=== PATIENT | female | born 1985 | race Caucasian/White ===

== ENCOUNTER 2023-11-25 06:33 | Observation (INO) ==
[~2023-11-25 06:33] MED LIST: Clindamycin 900 MG/50 **NS BAG 900 MG/50 ML BAG IV ONE
[2023-11-25] MEDS ORDERED: Naloxone 0.4 mg VIAL 0.4 mg/ml 1 ml VIAL IV PUSH PRN ×2 (07:01→08:19)
[2023-11-25] MEDS ORDERED: oxyCODONE SR 10 mg TAB ONE (07:24)
[2023-11-25] MEDS ORDERED: Scopolamine 1 mg/72hr PATCH ONE (07:25)
[2023-11-25] MEDS ORDERED: Ondansetron 4 mg VIAL 2 MG/ML 2 ml VIAL ONE (07:25)
[2023-11-25] MEDS: Scopolamine 1 mg/72hr PATCH TRANSDERM ONE (07:30)
[2023-11-25] MEDS: Ondansetron 4 mg VIAL 2 MG/ML 2 ml VIAL IV ONE (07:30)
[2023-11-25] MEDS: oxyCODONE SR 10 mg TAB PO ONE (07:30)
[2023-11-25 07:32] LABS: ABS Basophils 0.1 10^3/uL (0.0-0.1); ABS Eosinophils 0.1 10^3/uL (0.0-0.5); ABS Lymphocytes 2.3 10^3/uL (1.0-4.8); ABS Monocytes 0.5 10^3/uL (0.0-0.9); ABS Neutrophils 3.4 10^3/uL (1.5-7.6); ABS Nucleated RBC 0.01 10^3/ul; Eosinophil % 1.3 %; Hematocrit 43.5 % (35-45); Hemoglobin 15.3 g/dL (11.5-14.3); Lymphocyte % 36.1 %; Mean Corpuscular Hemoglobin 29.7 pg (27-33); Mean Corpuscular Volume 84.6 fL (80-97); Mean Platelet Volume 6.8 fL (7.5-11.2); Nucleated Red Blood Cells % 0.1 %/100WBC (0.0-0.8); Platelet Count 349 10^3/uL (150-450); Red Blood Count 5.14 10^6/uL (3.63-4.92); White Blood Count 6.4 10^3/uL (3.8-11.8)
[2023-11-25 08:15] LABS: Anion Gap 13 mmol/L (2-16); Blood Urea Nitrogen 16 mg/dL (6-24); CO2 Carbon Dioxide 22 mmol/L (22-32); Calcium 9.5 mg/dL (8.6-10.3); Chloride 107 mmol/L (101-111); Creatinine, Serum 0.83 mg/dL (0.51-0.95); Glucose 93 mg/dL (70-100); Potassium 4.1 mmol/L (3.5-5.0); Sodium 142 mmol/L (135-145); eGFR CKD-EPI 91.9 (>60)
[2023-11-25] MEDS ORDERED: Flumazenil 0.5 mg/5 ml 0.1 MG/ML 5 ml VIAL IV PRN (08:19)
[2023-11-25] MEDS ORDERED: Midazolam 5 mg/5 ml VIAL 1 mg/ml 5 ml VIAL (5 mg) ONE (08:19)
[2023-11-25] MEDS ORDERED: Lidocaine 1% VIAL 10 MG/ML 30 ML VIAL ONE (08:19)
[2023-11-25] MEDS ORDERED: fentaNYL 100 mcg/2 ml 50 MCG/ML VIAL ONE ×2 (08:19→09:36)
[2023-11-25] MEDS ORDERED: Heparin 2 UNITS/ML IVPREMIX 3,000 UNIT/1,500 ML BAG IV ONE (08:20)
[2023-11-25] MEDS ORDERED: nitroGLYCERIN DRIP 25,000 MCG/250 ML BTL ONE (08:20)
[2023-11-25] MEDS ORDERED: Iohexol 350 (CONTRAST) 100 ML PAK IV ONE ×2 (08:20→08:53)
[2023-11-25 08:22] LABS: HCG Pregnancy < 0.60 mIU/mL
[2023-11-25] MEDS ORDERED: HYDROmorphone 0.5 MG/0.5 ML SYRINGE ONE ×2 (09:49→10:11)
[2023-11-25] MEDS: HYDROmorphone PCA 20 MG/20 ML PCA.SYRING PCA SCH (11:03)
[2023-11-25] MEDS ORDERED: Prochlorperazine 5 mg/ml 2 ml VIAL (10 mg) IV PRN (11:11)
[2023-11-25] MEDS ORDERED: Prochlorperazine 5 mg/ml 2 ml VIAL (10 mg) ONE (11:14)
[2023-11-25] MEDS: Clindamycin 900 MG/50 **NS BAG 900 MG/50 ML BAG IV ONE (12:13)
[2023-11-25] MEDS: fentaNYL 100 mcg/2 ml 50 MCG/ML VIAL IV SLOW PU ONE (12:28)
[2023-11-25] MEDS: Midazolam 10 mg/10 ml VIAL 1 mg/ml 10 ml VIAL (10 mg) IV SLOW PU ONE (12:29)
[2023-11-25] MEDS: NS 0.9% 1000 ml BAG 1,000 ML IV SCH (14:21)
[2023-11-25] MEDS: Ondansetron 4 mg VIAL 2 MG/ML 2 ml VIAL IV SCH (15:35)
[2023-11-26] MEDS ORDERED: HYDROcodone/ACETAMIN 5/325 mg TAB PO PRN (08:34)
[2023-11-26] MEDS: Ketorolac 10 mg TAB (NF) PO SCH (09:22)
[2023-11-26 09:56] VITALS: BP 133/75
== END 2023-11-26 10:58 | disposition home or self-care (01) ==
LOC: CHICATH 06:33 → SSU 06:33 → SUATTDRO 13:16
PROVIDERS: ADMIT Student in an Organized Health Care Education/Training Program; ATTEND Student in an Organized Health Care Education/Training Program
PROC: ANG.UFE (2023-11-25 08:15)